=== PATIENT | male | born 1985 | race Caucasian/White ===

== ENCOUNTER 2018-06-26 23:00 | Emergency (ER) | payer SELFPAY ==
[2018-06-26 23:45] LABS: #Basophils 0.1 thou/uL (0.0-0.2); #Eosinphils 0.3 thou/uL (0.0-0.7); #Lymphocytes 2.7 thou/uL (1.20-3.40); #Monocytes 0.8 thou/uL (0.11-0.59); #Neutrophils 4.3 thou/uL (1.40-6.50); %Basophils 1.2 % (0.0-1.0); %Eosinophils 3.9 % (0.0-10.0); %Lymphocytes 33.3 % (21.0-51.0); %Monocytes 9.6 % (0.0-10.0); %Neutrophils 51.9 % (42.0-75.0); Hemoglobin 13.6 g/dL (14.0-18.0); Mean Corpuscular Hemoglobin 31.1 pg (27.0-31.0); Mean Corpuscular Volume 88.9 fL (78.0-98.0); Mean Platelet Volume 7.8 fL (7.4-10.4); Platelet Count 249 thou/uL (130-400); RBC Distribution Width 11.6 % (11.5-14.5); Red Blood Cell (RBC) Count 4.36 mill/uL (4.70-6.10); White Blood Cell (WBC) Count 8.2 thou/uL (4.8-10.8)
[2018-06-26 23:51] LABS: Bilirubin Negative (Negative); Blood, Urine Large (Negative); Clarity CLEAR (Clear); Glucose, Urine (Dipstick) Negative (Negative); Leukocyte Negative (Negative); Nitrite Negative (Negative); Protein, Urine (Dipstick) Negative (Neg-Trace); Specific Gravity, Urine 1.021 (1.002-1.036)
[2018-06-26 23:52] LABS: Bacteria/HPF None Seen HPF (None Seen); Hyaline Casts/LPF 0-3 HYALINE CAST LPF (0-3 Hyaline); Pathc Cast-AUWi Flag 0.29 (0-2.49); RBC/HPF GREATER THAN 50-TNTC HPF (0-3); Squamous Epithelial None Seen HPF (0-3); WBC/HPF 0-3 HPF (0-3)
[2018-06-27 00:06] LABS: ALT (SGPT) 24 U/L (8-55); AST (SGOT) 23 U/L (5-34); Albumin 4.4 g/dL (3.5-5.0); Alkaline Phosphatase 82 U/L (40-150); Anion Gap 13 mmol/L (10-20); BUN (Urea Nitrogen) 21 mg/dL (8.9-20.6); Bilirubin, Total 0.3 mg/dL (0.2-1.2); Calc. Creatinine Clearance 0 mL/min (70-130); Calcium 9.5 mg/dL (7.8-10.44); Carbon Dioxide 24 mmol/L (22-29); Chloride 104 mmol/L (98-107); Estimated GFR-MDRD 60; Globulin 3.3 g/dL (2.4-3.5); Glucose 87 mg/dL (70-105); Potassium 4.3 mmol/L (3.5-5.1); Protein, Total 7.7 g/dL (6.0-8.3); Sodium 137 mmol/L (136-145)
[2018-06-27] MEDS ORDERED: Ketorolac Tromethamine 30 MG/ML VIAL ONE (00:20)
[2018-06-27] MEDS ORDERED: Fentanyl 100 MCG/2 ML VIAL ONE (01:27)
--- NOTE | 2018-06-27 09:19 | CT ---
PRELIMINARY REPORT/[facility]/EMERGENTY AFTER-HOURS PROCEDURE CT Abdomen and Pelvis Without Intravenous Contrast EXAM DATE/TIME: 06/27/2018 12:41 AM CLINICAL HISTORY: 33 years old, male; Pain; Abdominal pain; Flank; Other: Bilateral flank; Patient HX: 33m presents wit h flank pain, bilateral, for one day. Patient reports history of renal stones in the past, and that t his episode feels similar. Reports cold sweats, with nausea and vomiting yesterday. Patient denies dy suria. Denies abdominal pain. TECHNIQUE: Axial computed tomography images of the abdomen and pelvis without intravenous contrast. Coronal reformatted images were created and reviewed. COMPARISON: No relevant prior studies available. FINDINGS: Lower thorax: No acute findings. ABDOMEN: Liver: No acute findings. No mass. Gallbladder and bile ducts: No calcified stones. No ductal dilation. Pancreas: No acute findings. No ductal dilation. Spleen: Mild splenomegaly. Punctate calcified splenic granulomata. Adrenals: No acute findings. No mass. Kidneys and ureters: Bilateral small 1-2 mm renal calculi. Small 4mm right distal ureteral calculus v ersus phlebolith. No hydroureteronephrosis. Stomach and bowel: No evidence of bowel obstruction. Diverticulosis. Underdistended sigmoid colon seg ments. Appendix: No evidence of appendicitis. PELVIS: Bladder: Small 3 mm calculus within the bladder. Reproductive: No acute findings. ABDOMEN and PELVIS: Intraperitoneal space: No free air. No significant fluid collection. Bones/joints: No acute fracture. Soft tissues: No acute findings. Vasculature: No abdominal aortic aneurysm. Lymph nodes: No significant adenopathy. IMPRESSION: Bilateral small nonobstructing renal calculi. Small right distal ureteral calculus versus phlebolith. No hydroureteronephrosis. Small bladder calculus. Thank you for allowing us to participate in the care of your patient. Dictated and Authenticated by: Javan George MD 06/27/2018 1:32 AM Central Time ([place] & [place]) FINAL REPORT EMERGENCY AFTER HOURS CT STONE PROTOCOL: Date: 06/27/18 FINDINGS/IMPRESSION: I agree with the preliminary report provided by Shashank. There is a small right distal ureteral calculus without significant hydronephrosis. There is a tiny b ladder calculus seen within the posterior aspect of the bladder itself. Bilateral nephrolithiasis. Ot her chronic findings as above. POS: [facility]
== END 2018-06-27 01:50 | disposition home or self-care (01) ==
LOC: ERS 23:00
DX: N20.0 Calculus of kidney (principal); Z79.899 Other long term (current) drug therapy
CPT/HCPCS: 36415; 74176; 80053; 81003; 81015; 85025; 87086; 96361; 96374; 96375; J1885; J3010

== ENCOUNTER 2019-04-20 16:56 | Observation (INO) | payer SELFPAY ==
[2019-04-20] MEDS ORDERED: Ondansetron ODT 4 MG TAB ONE (17:03)
[2019-04-20 17:34] LABS: #Basophils 0.1 thou/uL (0.0-0.2); #Eosinphils 0.2 thou/uL (0.0-0.7); #Lymphocytes 2.1 thou/uL (1.20-3.40); #Monocytes 0.6 thou/uL (0.11-0.59); #Neutrophils 5.6 thou/uL (1.40-6.50); %Basophils 1.5 % (0.0-1.0); %Eosinophils 2.8 % (0.0-10.0); %Lymphocytes 24.3 % (21.0-51.0); %Monocytes 7.2 % (0.0-10.0); %Neutrophils 64.2 % (42.0-75.0); Hemoglobin 14.7 g/dL (14.0-18.0); Mean Corpuscular HGB CONC 35.4 g/dL (32.0-36.0); Mean Corpuscular Hemoglobin 30.7 pg (27.0-31.0); Mean Corpuscular Volume 86.8 fL (78.0-98.0); Mean Platelet Volume 7.9 fL (7.4-10.4); Platelet Count 225 thou/uL (130-400); RBC Distribution Width 12.8 % (11.5-14.5); Red Blood Cell (RBC) Count 4.77 mill/uL (4.70-6.10); White Blood Cell (WBC) Count 8.7 thou/uL (4.8-10.8)
[2019-04-20 17:58] LABS: ALT (SGPT) 30 U/L (8-55); AST (SGOT) 26 U/L (5-34); Albumin 4.4 g/dL (3.5-5.0); Alkaline Phosphatase 90 U/L (40-110); Anion Gap 17 mmol/L (10-20); BUN (Urea Nitrogen) 19 mg/dL (8.9-20.6); Bilirubin, Total 0.3 mg/dL (0.2-1.2); Calc. Creatinine Clearance 0 mL/min (70-130); Calcium 9.9 mg/dL (7.8-10.44); Carbon Dioxide 23 mmol/L (22-29); Chloride 101 mmol/L (98-107); Estimated GFR-MDRD 69; Globulin 3.9 g/dL (2.4-3.5); Glucose 90 mg/dL (70-105); Lipase 18 U/L (8-78); Potassium 4.6 mmol/L (3.5-5.1); Protein, Total 8.3 g/dL (6.0-8.3); Sodium 136 mmol/L (136-145)
[2019-04-20 18:05] LABS: Bacteria/HPF None Seen HPF (None Seen); Bilirubin Negative (Negative); Blood, Urine 2+ (Negative); Clarity Clear (Clear); Glucose, Urine (Dipstick) Normal (Negative); Leukocyte Negative Leu/uL (Negative); Nitrite Negative (Negative); Protein, Urine (Dipstick) Negative (Neg-Trace); RBC/HPF Greater than 50 HPF (0-3); Squamous Epithelial 0-3 HPF (0-3); Urobilinogen Normal mg/dL (Less than 2); WBC/HPF 0-3 HPF (0-3)
--- NOTE | 2019-04-20 18:56 | RAD ---
SINGLE VIEW OF THE CHEST: 04/20/19 COMPARISON: None. HISTORY: Chest pain for two months. FINDINGS: Single view of the chest shows a normal sized cardiomediastinal silhouette. There is no evidence of c onsolidation, mass, or pleural effusion. The bones are unremarkable. IMPRESSION: No evidence of acute cardiopulmonary disease. POS: [facility]
[2019-04-20] MEDS ORDERED: Famotidine 20 MG TAB ONE (18:57)
[2019-04-20] MEDS ORDERED: Lidocaine Viscous Sol 2% 15 ml UD Cup ONE (19:00)
[2019-04-20] MEDS ORDERED: Mag-Al 1200 mg/1200 mg/30 ML UDCUP ONE (19:00)
[2019-04-20 20:08] LABS: Troponin I 0.022 ng/mL (< 0.028)
[2019-04-20 22:17] VITALS: BMI 34.7
[2019-04-20] MEDS ORDERED: Ondansetron PF 4 MG/2 ML Vial IVP PRN (22:18)
[2019-04-20] MEDS ORDERED: Ondansetron ODT 4 MG TAB SL PRN (22:18)
[2019-04-20] MEDS ORDERED: Acetaminophen 325 MG TAB PO PRN (22:18)
[2019-04-20 23:14] LABS: Troponin I 0.051 ng/mL (< 0.028)
[2019-04-20] MEDS ORDERED: Nitroglycerin 0.4 MG TAB (25 Tab Bottle) SL PRN (23:53)
[2019-04-21] MEDS: Ketorolac Tromethamine 30 MG/ML VIAL IVP SCH ×2 (00:42→06:45)
[2019-04-21 04:34] VITALS: TEMP 97.7
[2019-04-21 04:55] LABS: #Basophils 0.1 thou/uL (0.0-0.2); #Eosinphils 0.3 thou/uL (0.0-0.7); #Lymphocytes 2.3 thou/uL (1.20-3.40); #Monocytes 0.6 thou/uL (0.11-0.59); #Neutrophils 3.1 thou/uL (1.40-6.50); %Basophils 1.5 % (0.0-1.0); %Lymphocytes 35.8 % (21.0-51.0); %Monocytes 9.1 % (0.0-10.0); %Neutrophils 48.6 % (42.0-75.0); Hemoglobin 13.9 g/dL (14.0-18.0); Mean Corpuscular HGB CONC 34.9 g/dL (32.0-36.0); Mean Corpuscular Hemoglobin 30.3 pg (27.0-31.0); Mean Corpuscular Volume 86.8 fL (78.0-98.0); Mean Platelet Volume 8.1 fL (7.4-10.4); Platelet Count 174 thou/uL (130-400); RBC Distribution Width 12.6 % (11.5-14.5); Red Blood Cell (RBC) Count 4.58 mill/uL (4.70-6.10); White Blood Cell (WBC) Count 6.4 thou/uL (4.8-10.8)
[2019-04-21 05:17] LABS: Anion Gap 18 mmol/L (10-20); BUN (Urea Nitrogen) 20 mg/dL (8.9-20.6); Calc. Creatinine Clearance 149 mL/min (70-130); Calcium 9.7 mg/dL (7.8-10.44); Carbon Dioxide 22 mmol/L (22-29); Chloride 103 mmol/L (98-107); Estimated GFR-MDRD 69; Glucose 101 mg/dL (70-105); Potassium 4.6 mmol/L (3.5-5.1); Sodium 138 mmol/L (136-145)
[2019-04-21 05:22] LABS: Troponin I 0.032 ng/mL (< 0.028)
--- NOTE | 2019-04-21 07:34 | CT ---
PRELIMINARY REPORT/[facility]/EMERGENCY AFTER HOURS PROCEDURE: PROCEDURE INFORMATION: Exam: CT Abdomen and Pelvis Without Contrast Exam date and time: 04/21/2019 12:24 AM Clinical history: 34 years old, male; Abdominal pain; Localized; Left upper quadrant (luq); Patient H X: M36, patient complains of luq pain, patient reports nausea, denies vomiting. Also denies any surgi mateus history TECHNIQUE: Imaging protocol: Computed tomography of the abdomen and pelvis without contrast. COMPARISON: No relevant prior studies available. FINDINGS: Liver: Normal. Gallbladder and bile ducts: Normal Pancreas: Normal. Spleen: Splenic calcifications, compatible with prior granulomatous disease. Adrenals: Normal. Kidneys and ureters: Bilateral nonobstructive nephrolithiasis. Stomach and bowel: Scattered colonic diverticulosis. Appendix: Appendix normal. Intraperitoneal space: Unremarkable. No free air. No significant fluid collection. Vasculature: Unremarkable. No abdominal aortic aneurysm. Lymph nodes: Calcified left hilar lymph nodes, compatible with prior granulomatous disease. Several s mall lymph nodes within the right lower quadrant and mesenteric root, likely reactive. Bladder: Unremarkable as visualized. Reproductive: Unremarkable as visualized. Bones/joints: No acute abnormality. Soft tissues: Normal. IMPRESSION: No acute abdominal or pelvic abnormality. Thank you for allowing us to participate in the care of your patient. Dictated and Authenticated by: Maurice Carolina MD 04/21/2019 1:34 AM Central Time ([place] & [place]) FINAL REPORT EMERGENCY AFTER HOURS CT ABDOMEN AND PELVIS: I DISAGREE with the preliminary report provided by [facility]. There are bilateral nonobstructing renal calculi; however, there is very slight prominence of a right renal collecting system proximally. There is a 4 mm stone within the distal right ureter. No adriane h ydroureter is evident. The largest stone within the superior pole of left kidney measures 2.8 mm. The re is a 3.0 mm stone within the inferior pole of the right kidney. There are additional punctate ston es within the right kidney. A small, 1-2 mm, stone is seen within the left mid kidney. There is calcified granuloma in the left lower lobe. There are calcified granulomas within the liver and spleen. Unopacified pancreas and adrenal glands appear within normal limits. There is a normal appendix in th e right lower quadrant. The bladder is grossly unremarkable appearing. No definite acute osseous abnormality is evident. There are scattered bone islands present within the pelvis. IMPRESSION: 1. Distal right ureteral calculus. There is very subtle slight prominence of the right proximal cash l collecting system, some of which may be related to an extrarenal pelvis as extrarenal pelvis is pre sent involving the left renal collecting system. No adriane hydroureter is evident. 2. Bilateral nephrolithiasis. 3. Findings of prior granulomatous disease. POS: [facility]
[2019-04-21 08:09] VITALS: BP 134/77
[2019-04-21] MEDS ORDERED: Enoxaparin Sodium 40 MG/0.4 ML SYRINGE SC SCH (09:00)
--- NOTE | 2019-04-21 09:44 | PDOC.EVN ---
Event Note - Event Note Event Note: Patient left AMA before initial assessment.
--- NOTE | 2019-05-01 14:42 | EKG ---
Test Reason : Blood Pressure : / mmHG Vent. Rate : 075 BPM Atrial Rate : 075 BPM P-R Int : 152 ms QRS Dur : 090 ms QT Int : 422 ms P-R-T Axes : 059 025 175 degrees QTc Int : 471 ms Normal sinus rhythm Possible Left atrial enlargement Left ventricular hypertrophy with repolarization abnormality Abnormal ECG Confirmed by TYLER BOUCHER DO ([id number]), editor publications ROSELINE GRULLON ([id number]) on 05/01/2019 2:41:46 PM Referred By: Confirmed By:TYLER BOUCHER DO
--- NOTE | 2019-05-01 14:50 | EKG ---
Test Reason : Blood Pressure : / mmHG Vent. Rate : 062 BPM Atrial Rate : 062 BPM P-R Int : 142 ms QRS Dur : 094 ms QT Int : 462 ms P-R-T Axes : 044 013 170 degrees QTc Int : 468 ms Normal sinus rhythm Possible Left atrial enlargement Left ventricular hypertrophy Prolonged QT Abnormal ECG Confirmed by TYLER BOUCHER DO ([id number]), production editor ROSELINE GRULLON ([id number]) on 05/01/2019 2:49:35 PM Referred By: Confirmed By:TYLER BOUCHER DO
== END 2019-04-21 09:24 | disposition left against medical advice (07) ==
LOC: ERS 16:56 → 2SE 22:04
PROVIDERS: ADMIT Hospitalist; ATTEND Hospitalist
DX: R07.9 Chest pain, unspecified (principal); R94.31 Abnormal electrocardiogram [ECG] [EKG]; R10.12 Left upper quadrant pain; F17.210 Nicotine dependence, cigarettes, uncomplicated; N20.0 Calculus of kidney; Z53.21 Procedure and treatment not carried out due to patient leaving prior to being seen by health care provider
CPT/HCPCS: 36415; 71045; 74176; 80048; 80053; 81003; 81015; 83690; 83880; 84484; 85025; 93005; 96374; 96376; G0378; J1650; J1885; Q0162

== ENCOUNTER 2019-10-23 17:16 | Emergency (ER) | payer SELFPAY ==
[2019-10-23] MEDS ORDERED: Ibuprofen 200 MG TAB ONE (18:01)
[2019-10-23] MEDS ORDERED: Acetaminophen 500 MG TAB ONE (18:01)
[2019-10-23 18:22] LABS: #Basophils 0.1 thou/uL (0.0-0.2); #Eosinphils 0.2 thou/uL (0.0-0.7); #Lymphocytes 1.6 thou/uL (1.20-3.40); #Monocytes 0.6 thou/uL (0.11-0.59); #Neutrophils 3.9 thou/uL (1.40-6.50); %Basophils 0.9 % (0.0-1.0); %Eosinophils 2.9 % (0.0-10.0); %Lymphocytes 24.7 % (21.0-51.0); %Monocytes 9.4 % (0.0-10.0); %Neutrophils 62.1 % (42.0-75.0); Hemoglobin 13.3 g/dL (14.0-18.0); Mean Corpuscular HGB CONC 35.7 g/dL (32.0-36.0); Mean Corpuscular Hemoglobin 31.1 pg (27.0-31.0); Mean Corpuscular Volume 87.1 fL (78.0-98.0); Mean Platelet Volume 7.4 fL (7.4-10.4); Platelet Count 188 thou/uL (130-400); RBC Distribution Width 12.1 % (11.5-14.5); Red Blood Cell (RBC) Count 4.28 mill/uL (4.70-6.10); White Blood Cell (WBC) Count 6.3 thou/uL (4.8-10.8)
--- NOTE | 2019-10-23 18:26 | RAD ---
XR Chest 1 View Portable History: Chest pain Comparison: Radiograph March 2019 Findings: Heart size is enlarged. Pulmonary arteries are enlarged. No pneumothorax. No effusion. No c onfluent airspace consolidation. Impression: No acute intrathoracic abnormality.
[2019-10-23 18:45] LABS: ALT (SGPT) 26 U/L (8-55); AST (SGOT) 18 U/L (5-34); Albumin 4.2 g/dL (3.5-5.0); Alkaline Phosphatase 96 U/L (40-110); Anion Gap 13 mmol/L (10-20); BUN (Urea Nitrogen) 16 mg/dL (8.9-20.6); Bilirubin, Total 0.4 mg/dL (0.2-1.2); Calc. Creatinine Clearance 0 mL/min (70-130); Calcium 9.6 mg/dL (7.8-10.44); Carbon Dioxide 28 mmol/L (22-29); Chloride 103 mmol/L (98-107); Estimated GFR-MDRD 58; Globulin 2.6 g/dL (2.4-3.5); Glucose 102 mg/dL (70-105); Lipase 9 U/L (8-78); Potassium 4.7 mmol/L (3.5-5.1); Protein, Total 6.8 g/dL (6.0-8.3); Sodium 139 mmol/L (136-145)
--- NOTE | 2019-10-28 14:23 | EKG ---
Test Reason : Blood Pressure : / mmHG Vent. Rate : 061 BPM Atrial Rate : 061 BPM P-R Int : 154 ms QRS Dur : 094 ms QT Int : 454 ms P-R-T Axes : 052 033 155 degrees QTc Int : 457 ms Normal sinus rhythm Possible Left atrial enlargement Left ventricular hypertrophy T wave abnormality, consider inferolateral ischemia Abnormal ECG Reconfirmed by FANY GRANADOS ([id number]), commercial production editor ROSELINE GRULLON ([id number]) on 10/28/2019 2:23:09 PM Referred By: Confirmed By:FANY Power
== END 2019-10-23 20:44 ==
LOC: ERS 17:16
DX: R07.9 Chest pain, unspecified (principal); F17.210 Nicotine dependence, cigarettes, uncomplicated; Z87.442 Personal history of urinary calculi
CPT/HCPCS: 36415; 71045; 80053; 83690; 84484; 85025; 93005

== ENCOUNTER 2022-02-13 12:29 | Inpatient (IN) | payer OTHER ==
[2022-02-13 13:18] LABS: #Basophils 0.1 thou/uL (0.0-0.2); #Lymphocytes 1.8 thou/uL (1.20-3.40); #Monocytes 0.6 thou/uL (0.11-0.59); #Neutrophils 5.4 thou/uL (1.40-6.50); %Basophils 0.7 % (0.0-1.0); %Eosinophils 0.4 % (0.0-10.0); %Lymphocytes 22.6 % (21.0-51.0); %Monocytes 7.4 % (0.0-10.0); %Neutrophils 68.9 % (42.0-75.0); Hemoglobin 15.7 g/dL (14.0-18.0); Mean Corpuscular HGB CONC 33.6 g/dL (32.0-36.0); Mean Corpuscular Hemoglobin 30.4 pg (27.0-31.0); Mean Corpuscular Volume 90.3 fL (78.0-98.0); Mean Platelet Volume 8.2 fL (7.4-10.4); Platelet Count 230 thou/uL (130-400); RBC Distribution Width 13.1 % (11.5-14.5); Red Blood Cell (RBC) Count 5.18 mill/uL (4.70-6.10); White Blood Cell (WBC) Count 7.8 thou/uL (4.8-10.8)
[2022-02-13 13:47] LABS: ALT (SGPT) 19 U/L (8-55); AST (SGOT) 16 U/L (5-34); Albumin 4.4 g/dL (3.5-5.0); Alkaline Phosphatase 81 U/L (40-110); Anion Gap 16 mmol/L (10-20); BUN (Urea Nitrogen) 13 mg/dL (8.9-20.6); Bilirubin, Total 0.7 mg/dL (0.2-1.2); CK (CPK) 70 U/L (30-200); Calc. Creatinine Clearance 0 mL/min (70-130); Calcium 9.7 mg/dL (7.8-10.44); Carbon Dioxide 21 mmol/L (22-29); Chloride 108 mmol/L (98-107); Estimated GFR 83; Globulin 2.6 g/dL (2.4-3.5); Glucose 124 mg/dL (70-105); Lipase 21 U/L (8-78); Potassium 4.1 mmol/L (3.5-5.1); Sodium 141 mmol/L (136-145)
[2022-02-13 14:05] LABS: CKMB 3.8 ng/mL (0-6.6)
[2022-02-13] MEDS ORDERED: Aspirin Chewable 81 MG TAB ONE (14:13)
[2022-02-13] MEDS ORDERED: Nitroglycerin 2% Ointment 1 INCH/1 GM Packet ONE (14:13)
[2022-02-13] MEDS ORDERED: Ondansetron ODT 4 MG TAB PO PRN (14:59)
[2022-02-13] MEDS ORDERED: Ondansetron PF 4 MG/2 ML Vial IVP PRN (14:59)
[2022-02-13] MEDS ORDERED: Acetaminophen 500 MG TAB ONE (15:18)
[2022-02-13 15:22] LABS: Hemoglobin A1c 5.3 % (4.0-6.0)
[2022-02-13 15:31] LABS: Cardiac Risk 3.2 (Less than 4.5)
[2022-02-13] MEDS ORDERED: Morphine 2 MG/ML VIAL ONE (16:41)
[2022-02-13 18:01] LABS: CKMB 3.9 ng/mL (0-6.6)
[2022-02-13 20:40] VITALS: BMI 31.8
[2022-02-13] MEDS: Acetaminophen 500 MG TAB PO PRN (20:50)
[2022-02-13 21:22] LABS: Amphetamine Not Detected (NotDetected); Barbiturates Screen Not Detected (NotDetected); Benzodiazepine Screen Not Detected (NotDetected); Cocaine Metabolite Screen Not Detected (NotDetected); Methadone Not Detected (NotDetected); Methamphetamine Not Detected (NotDetected); Opiate Screen Detected (NotDetected); Oxycodone Screen Not Detected (NotDetected); Phencyclidine (PCP) Not Detected (NotDetected); THC/Cannabinoid Screen Detected (NotDetected); Tricyclic Screen Not Detected (NotDetected)
[2022-02-13] MEDS: Morphine 2 MG/ML VIAL SLOW IVP PRN (22:24)
[2022-02-14 04:45] LABS: #Basophils 0.1 thou/uL (0.0-0.2); #Eosinphils 0.1 thou/uL (0.0-0.7); #Lymphocytes 2.7 thou/uL (1.20-3.40); #Monocytes 0.7 thou/uL (0.11-0.59); #Neutrophils 4.7 thou/uL (1.40-6.50); %Basophils 0.7 % (0.0-1.0); %Eosinophils 1.4 % (0.0-10.0); %Lymphocytes 32.5 % (21.0-51.0); %Monocytes 8.3 % (0.0-10.0); %Neutrophils 57.1 % (42.0-75.0); Mean Corpuscular HGB CONC 33.4 g/dL (32.0-36.0); Mean Corpuscular Hemoglobin 30.6 pg (27.0-31.0); Mean Corpuscular Volume 91.6 fL (78.0-98.0); Mean Platelet Volume 8.4 fL (7.4-10.4); Platelet Count 200 thou/uL (130-400); RBC Distribution Width 13.1 % (11.5-14.5); Red Blood Cell (RBC) Count 4.92 mill/uL (4.70-6.10); White Blood Cell (WBC) Count 8.3 thou/uL (4.8-10.8)
[2022-02-14 05:06] LABS: ALT (SGPT) 19 U/L (8-55); AST (SGOT) 14 U/L (5-34); Alkaline Phosphatase 78 U/L (40-110); Anion Gap 13 mmol/L (10-20); BUN (Urea Nitrogen) 13 mg/dL (8.9-20.6); Bilirubin, Total 0.7 mg/dL (0.2-1.2); Calc. Creatinine Clearance 129 mL/min (70-130); Calcium 9.4 mg/dL (7.8-10.44); Carbon Dioxide 27 mmol/L (22-29); Chloride 106 mmol/L (98-107); Estimated GFR 82; Globulin 2.7 g/dL (2.4-3.5); Glucose 121 mg/dL (70-105); Potassium 4.6 mmol/L (3.5-5.1); Protein, Total 6.7 g/dL (6.0-8.3); Sodium 141 mmol/L (136-145)
[2022-02-14 08:48] LABS: Troponin I 0.041 ng/mL (< 0.028)
[2022-02-14] MEDS: Acetaminophen 500 MG TAB PO PRN (12:42)
[2022-02-14] MEDS: Enoxaparin Sodium 40 MG/0.4 ML SYRINGE SC SCH (12:42)
[2022-02-14] MEDS ORDERED: ADENOSINE 60 MG/20 ML VIAL ONE (13:58)
[2022-02-14] MEDS ORDERED: Nitroglycerin 0.4 MG TAB (25 Tab Bottle) SL PRN (14:28)
[2022-02-14] MEDS ORDERED: Lisinopril 5 MG TAB PO SCH (15:00)
[2022-02-14] MEDS: Morphine 2 MG/ML VIAL SLOW IVP PRN ×2 (15:06→22:43)
[2022-02-14 15:38] LABS: Troponin I 0.116 ng/mL (< 0.028)
[2022-02-14] MEDS ORDERED: Ketorolac Tromethamine 30 MG/ML VIAL IVP SCH (16:45)
[2022-02-14 18:41] LABS: Troponin I 0.051 ng/mL (< 0.028)
[2022-02-14] MEDS: Ibuprofen 600 MG TAB PO SCH (21:15)
[2022-02-14] MEDS: Metoprolol Tartrate 50 MG TAB PO SCH (21:16)
[2022-02-15 05:08] LABS: #Basophils 0.1 thou/uL (0.0-0.2); #Eosinphils 0.1 thou/uL (0.0-0.7); #Lymphocytes 2.8 thou/uL (1.20-3.40); #Monocytes 0.8 thou/uL (0.11-0.59); #Neutrophils 5.1 thou/uL (1.40-6.50); %Basophils 0.8 % (0.0-1.0); %Eosinophils 1.6 % (0.0-10.0); %Lymphocytes 31.2 % (21.0-51.0); %Monocytes 8.8 % (0.0-10.0); %Neutrophils 57.6 % (42.0-75.0); Hemoglobin 14.6 g/dL (14.0-18.0); Mean Corpuscular Hemoglobin 29.9 pg (27.0-31.0); Mean Corpuscular Volume 90.8 fL (78.0-98.0); Mean Platelet Volume 8.5 fL (7.4-10.4); Platelet Count 214 thou/uL (130-400); Red Blood Cell (RBC) Count 4.87 mill/uL (4.70-6.10); White Blood Cell (WBC) Count 8.9 thou/uL (4.8-10.8)
[2022-02-15 05:29] LABS: ALT (SGPT) 22 U/L (8-55); AST (SGOT) 17 U/L (5-34); Albumin 3.5 g/dL (3.5-5.0); Alkaline Phosphatase 73 U/L (40-110); Anion Gap 18 mmol/L (10-20); BUN (Urea Nitrogen) 15 mg/dL (8.9-20.6); Bilirubin, Total 0.5 mg/dL (0.2-1.2); Calc. Creatinine Clearance 137 mL/min (70-130); Carbon Dioxide 14 mmol/L (22-29); Chloride 110 mmol/L (98-107); Estimated GFR 89; Globulin 2.8 g/dL (2.4-3.5); Glucose 105 mg/dL (70-105); Potassium 4.6 mmol/L (3.5-5.1); Protein, Total 6.3 g/dL (6.0-8.3); Sodium 137 mmol/L (136-145)
[2022-02-15] MEDS: Enoxaparin Sodium 40 MG/0.4 ML SYRINGE SC SCH (08:41)
[2022-02-15] MEDS: Ibuprofen 600 MG TAB PO SCH (08:42)
[2022-02-15] MEDS: Metoprolol Tartrate 50 MG TAB PO SCH (08:43)
[2022-02-15] MEDS ORDERED: Lisinopril 5 MG TAB PO SCH (09:00)
[2022-02-15 11:38] LABS: Troponin I 0.039 ng/mL (< 0.028)
[2022-02-15] MEDS: Acetaminophen 500 MG TAB PO PRN (12:13)
[2022-02-15 12:24] VITALS: BP 131/71; TEMP 98.9
== END 2022-02-15 15:05 | DRG 314 ==
LOC: ERS 12:29 → EEVIPCON 12:29 → 2SW 15:07 → OBSVTOIN 02-14 16:28
PROVIDERS: ADMIT Student in an Organized Health Care Education/Training Program; ATTEND Student in an Organized Health Care Education/Training Program
DX: I42.1 Obstructive hypertrophic cardiomyopathy (principal); U07.1 COVID-19; F17.210 Nicotine dependence, cigarettes, uncomplicated; F14.10 Cocaine abuse, uncomplicated; F15.10 Other stimulant abuse, uncomplicated; Z87.442 Personal history of urinary calculi; Z83.3 Family history of diabetes mellitus; Z80.42 Family history of malignant neoplasm of prostate; Z82.49 Family history of ischemic heart disease and other diseases of the circulatory system
CPT/HCPCS: 36415; 71045; 78452; 80053; 80061; 80306; 82550; 82553; 83036; 83690; 84443; 84484; 85025; 93005; 93010; 93017; 93306; 96372; 96374; 96376; A9500; G0378; J0153; J1650; J1885; J2270; U0003; U0005

== ENCOUNTER 2022-05-04 21:29 | Inpatient (IN) | payer OTHER ==
[2022-05-04] MEDS ORDERED: Nitroglycerin 2% Ointment 1 INCH/1 GM Packet ONE (22:06)
[2022-05-04 22:08] LABS: #Basophils 0.1 thou/uL (0.0-0.2); #Eosinphils 0.2 thou/uL (0.0-0.7); #Lymphocytes 2.5 thou/uL (1.20-3.40); #Monocytes 0.6 thou/uL (0.11-0.59); #Neutrophils 5.1 thou/uL (1.40-6.50); %Basophils 0.9 % (0.0-1.0); %Eosinophils 2.5 % (0.0-10.0); %Lymphocytes 29.3 % (21.0-51.0); %Monocytes 6.9 % (0.0-10.0); %Neutrophils 60.4 % (42.0-75.0); Hemoglobin 16.6 g/dL (14.0-18.0); Mean Corpuscular HGB CONC 34.6 g/dL (32.0-36.0); Mean Corpuscular Volume 89.6 fL (78.0-98.0); Mean Platelet Volume 7.9 fL (7.4-10.4); Platelet Count 275 thou/uL (130-400); RBC Distribution Width 11.5 % (11.5-14.5); Red Blood Cell (RBC) Count 5.36 mill/uL (4.70-6.10); White Blood Cell (WBC) Count 8.5 thou/uL (4.8-10.8)
[2022-05-04 22:23] LABS: ALT (SGPT) 12 U/L (8-55); AST (SGOT) 12 U/L (5-34); Albumin 4.7 g/dL (3.5-5.0); Alkaline Phosphatase 84 U/L (40-110); Anion Gap 10 mmol/L (10-20); BUN (Urea Nitrogen) 18 mg/dL (8.9-20.6); Bilirubin, Total 0.9 mg/dL (0.2-1.2); CK (CPK) 64 U/L (30-200); Calc. Creatinine Clearance 0 mL/min (70-130); Calcium 10.3 mg/dL (7.8-10.44); Carbon Dioxide 30 mmol/L (22-29); Chloride 106 mmol/L (98-107); Estimated GFR 58; Globulin 3.2 g/dL (2.4-3.5); Glucose 106 mg/dL (70-105); Potassium 4.5 mmol/L (3.5-5.1); Protein, Total 7.9 g/dL (6.0-8.3); Sodium 141 mmol/L (136-145)
[2022-05-04 22:44] LABS: CKMB 1.9 ng/mL (0-6.6)
[2022-05-04] MEDS ORDERED: Acetaminophen 500 MG TAB ONE (23:37)
[2022-05-05] MEDS ORDERED: Acetaminophen 650 MG Suppository PR PRN (00:52)
[2022-05-05] MEDS ORDERED: Ondansetron PF 4 MG/2 ML Vial IVP PRN (00:52)
[2022-05-05] MEDS ORDERED: Ondansetron ODT 4 MG TAB PO PRN (00:52)
[2022-05-05] MEDS: Nitroglycerin 0.4 MG TAB (25 Tab Bottle) SL PRN ×2 (01:24→07:46)
[2022-05-05] MEDS: Acetaminophen 325 MG TAB PO PRN ×3 (01:24→20:45)
[2022-05-05] MEDS: Morphine 4 MG/ML VIAL SLOW IVP PRN (01:25)
[2022-05-05 01:51] VITALS: BMI 31.6
[2022-05-05] MEDS ORDERED: Enoxaparin Sodium 120 MG/0.8 ML SYRINGE SC SCH (03:00)
[2022-05-05] MEDS ORDERED: Morphine 4 MG/ML VIAL SLOW IVP SCH (04:30)
[2022-05-05] MEDS: Sodium Chloride 0.9% 1,000 ML IV SCH ×2 (04:34→13:28)
[2022-05-05 06:03] LABS: #Basophils 0.1 thou/uL (0.0-0.2); #Eosinphils 0.2 thou/uL (0.0-0.7); #Lymphocytes 2.4 thou/uL (1.20-3.40); #Monocytes 0.7 thou/uL (0.11-0.59); #Neutrophils 3.3 thou/uL (1.40-6.50); %Basophils 1.3 % (0.0-1.0); %Eosinophils 2.5 % (0.0-10.0); %Lymphocytes 36.7 % (21.0-51.0); %Monocytes 9.7 % (0.0-10.0); %Neutrophils 49.8 % (42.0-75.0); Hemoglobin 14.5 g/dL (14.0-18.0); Mean Corpuscular HGB CONC 33.4 g/dL (32.0-36.0); Mean Corpuscular Hemoglobin 29.7 pg (27.0-31.0); Mean Corpuscular Volume 89.1 fL (78.0-98.0); Platelet Count 217 thou/uL (130-400); RBC Distribution Width 11.8 % (11.5-14.5); Red Blood Cell (RBC) Count 4.86 mill/uL (4.70-6.10); White Blood Cell (WBC) Count 6.6 thou/uL (4.8-10.8)
[2022-05-05 06:15] LABS: Anion Gap 12 mmol/L (10-20); BUN (Urea Nitrogen) 15 mg/dL (8.9-20.6); Calc. Creatinine Clearance 124 mL/min (70-130); Calcium 9.2 mg/dL (7.8-10.44); Carbon Dioxide 24 mmol/L (22-29); Chloride 108 mmol/L (98-107); Estimated GFR 77; Glucose 114 mg/dL (70-105); Potassium 3.9 mmol/L (3.5-5.1); Sodium 140 mmol/L (136-145)
[2022-05-05] MEDS: Aspirin Chewable 81 MG TAB PO SCH (07:45)
[2022-05-05] MEDS ORDERED: Metoprolol Tartrate 50 MG TAB PO SCH (09:00)
[2022-05-05] MEDS ORDERED: Lisinopril 5 MG TAB PO SCH (09:00)
[2022-05-05] MEDS ORDERED: Enoxaparin Sodium 40 MG/0.4 ML SYRINGE SC SCH (09:00)
[2022-05-05] MEDS ORDERED: FLU VACC QS2022-23(6MOS UP)/PF 60 MCG/0.5 ML SYRINGE IM ONE (09:00)
[2022-05-05] MEDS ORDERED: Metoclopramide HCl 10 MG/2 ML VIAL IVP SCH (09:45)
[2022-05-05 10:38] LABS: Hemoglobin A1c 5.1 % (4.0-6.0)
[2022-05-05 11:48] LABS: Amphetamine Not Detected (NotDetected); Barbiturates Screen Not Detected (NotDetected); Benzodiazepine Screen Not Detected (NotDetected); Cocaine Metabolite Screen Not Detected (NotDetected); Methadone Not Detected (NotDetected); Methamphetamine Not Detected (NotDetected); Opiate Screen Detected (NotDetected); Oxycodone Screen Not Detected (NotDetected); Phencyclidine (PCP) Not Detected (NotDetected); THC/Cannabinoid Screen Not Detected (NotDetected); Tricyclic Screen Not Detected (NotDetected)
[2022-05-05] MEDS ORDERED: Sodium Chloride 0.9% 1,000 ML IV SCH (18:15)
[2022-05-05] MEDS: Metoprolol Tartrate 25 MG TAB PO SCH (20:45)
[2022-05-06] MEDS: Morphine 4 MG/ML VIAL SLOW IVP PRN ×2 (00:36→20:21)
[2022-05-06 05:22] LABS: #Basophils 0.1 thou/uL (0.0-0.2); #Eosinphils 0.2 thou/uL (0.0-0.7); #Lymphocytes 2.5 thou/uL (1.20-3.40); #Monocytes 0.5 thou/uL (0.11-0.59); #Neutrophils 3.2 thou/uL (1.40-6.50); %Eosinophils 3.6 % (0.0-10.0); %Lymphocytes 38.3 % (21.0-51.0); %Monocytes 7.7 % (0.0-10.0); %Neutrophils 49.4 % (42.0-75.0); Mean Corpuscular HGB CONC 32.7 g/dL (32.0-36.0); Mean Corpuscular Hemoglobin 29.5 pg (27.0-31.0); Mean Corpuscular Volume 90.4 fL (78.0-98.0); Mean Platelet Volume 7.9 fL (7.4-10.4); Platelet Count 234 thou/uL (130-400); RBC Distribution Width 11.7 % (11.5-14.5); Red Blood Cell (RBC) Count 5.08 mill/uL (4.70-6.10); White Blood Cell (WBC) Count 6.5 thou/uL (4.8-10.8)
[2022-05-06 05:38] LABS: Anion Gap 12 mmol/L (10-20); BUN (Urea Nitrogen) 14 mg/dL (8.9-20.6); Calc. Creatinine Clearance 123 mL/min (70-130); Calcium 9.3 mg/dL (7.8-10.44); Carbon Dioxide 23 mmol/L (22-29); Cardiac Risk 5.7 (Less than 4.5); Chloride 108 mmol/L (98-107); Cholesterol 131 mg/dl (< 200 Desired); Estimated GFR 76; Glucose 82 mg/dL (70-105); HDL Cholesterol 23 mg/dL (>60 Neg Risk); LDL Cholesterol, Calculated 68 mg/dL; Magnesium 2.1 mg/dL (1.6-2.6); Potassium 4.3 mmol/L (3.5-5.1); Sodium 139 mmol/L (136-145); Triglycerides 201 mg/dL (Less than 150)
[2022-05-06] MEDS: Lidocaine 5% Patch TD SCH (10:13)
[2022-05-06] MEDS: Metoprolol Tartrate 25 MG TAB PO SCH ×2 (10:14→20:20)
[2022-05-06] MEDS: Aspirin Chewable 81 MG TAB PO SCH (10:14)
[2022-05-06 11:39] LABS: Troponin I 0.016 ng/mL (< 0.028)
[2022-05-06] MEDS ORDERED: Atorvastatin Calcium 40 MG TAB PO SCH (21:00)
[2022-05-06] MEDS ORDERED: Transdermal Patch Removal TOP SCH (21:00)
[2022-05-07] MEDS: Morphine 4 MG/ML VIAL SLOW IVP PRN (05:42)
[2022-05-07 05:59] LABS: #Basophils 0.1 thou/uL (0.0-0.2); #Eosinphils 0.3 thou/uL (0.0-0.7); #Lymphocytes 2.4 thou/uL (1.20-3.40); #Monocytes 0.6 thou/uL (0.11-0.59); #Neutrophils 3.4 thou/uL (1.40-6.50); %Basophils 1.2 % (0.0-1.0); %Eosinophils 3.7 % (0.0-10.0); %Monocytes 9.2 % (0.0-10.0); %Neutrophils 49.8 % (42.0-75.0); Hemoglobin 15.1 g/dL (14.0-18.0); Mean Corpuscular HGB CONC 33.3 g/dL (32.0-36.0); Mean Corpuscular Hemoglobin 30.1 pg (27.0-31.0); Mean Corpuscular Volume 90.4 fL (78.0-98.0); Mean Platelet Volume 8.4 fL (7.4-10.4); Platelet Count 228 thou/uL (130-400); RBC Distribution Width 11.6 % (11.5-14.5); White Blood Cell (WBC) Count 6.8 thou/uL (4.8-10.8)
[2022-05-07 06:16] LABS: Anion Gap 13 mmol/L (10-20); BUN (Urea Nitrogen) 17 mg/dL (8.9-20.6); Calc. Creatinine Clearance 112 mL/min (70-130); Calcium 9.4 mg/dL (7.8-10.44); Carbon Dioxide 25 mmol/L (22-29); Chloride 107 mmol/L (98-107); Estimated GFR 67; Glucose 102 mg/dL (70-105); Magnesium 2.2 mg/dL (1.6-2.6); Potassium 4.3 mmol/L (3.5-5.1); Sodium 141 mmol/L (136-145)
[2022-05-07] MEDS ORDERED: Baclofen 10 MG TAB PO SCH (09:00)
[2022-05-07] MEDS ORDERED: Enoxaparin Sodium 40 MG/0.4 ML SYRINGE SC SCH (09:00)
[2022-05-07] MEDS ORDERED: Metoprolol Tartrate 50 MG TAB PO SCH ×4 (10:35→21:00)
[2022-05-07] MEDS: Aspirin Chewable 81 MG TAB PO SCH (11:15)
[2022-05-07] MEDS: Metoprolol Tartrate 25 MG TAB PO SCH (11:16)
[2022-05-07] MEDS: Lidocaine 5% Patch TD SCH (11:17)
[2022-05-07] MEDS: Acetaminophen 325 MG TAB PO PRN (11:47)
[2022-05-07 11:54] VITALS: BP 145/80; TEMP 97.5
== END 2022-05-07 14:55 | DRG 313 ==
LOC: ERS 21:29 → EEVIPCON 23:35 → NEURO 23:35 → OBSVTOIN 05-06 09:13
PROVIDERS: ADMIT Student in an Organized Health Care Education/Training Program; ATTEND Family Medicine
DX: R07.89 Other chest pain (principal); I42.2 Other hypertrophic cardiomyopathy; N17.9 Acute kidney failure, unspecified; I51.7 Cardiomegaly; F19.10 Other psychoactive substance abuse, uncomplicated; F17.210 Nicotine dependence, cigarettes, uncomplicated; Z20.822 Contact with and (suspected) exposure to COVID-19; G44.40 Drug-induced headache, not elsewhere classified, not intractable; T46.3X5A Adverse effect of coronary vasodilators, initial encounter; R00.0 Tachycardia, unspecified; N18.9 Chronic kidney disease, unspecified; I12.9 Hypertensive chronic kidney disease with stage 1 through stage 4 chronic kidney disease, or unspecified chronic kidney disease; Z79.899 Other long term (current) drug therapy
CPT/HCPCS: 36415; 36416; 71045; 80048; 80053; 80061; 80306; 82550; 82553; 83036; 83735; 84443; 84484; 85025; 93005; 93010; 94760; 96372; 96374; 96375; 96376; G0378; J1650; J2270; J2765; J7050; U0003; U0005